=== PATIENT | female | born 1965 | race African-American/Black ===

== ENCOUNTER 2016-09-07 16:28 | Inpatient (IN) ==
--- NOTE | 2016-09-07 17:32 | EKG Report ---
Stationary ECG Study [facility] ER Test Date: 09/07/2016 5:30:21 PM Pat Name: [place] DIAZ Department: Room: Gender: F Emergency Medcl Emt: : 1965 Requested by: Vasile Milligan Order Number: [id number] Reading MD: REAGAN GUSTAFSON Intervals [place] Rate: 69 P: 42 AL: 176 QRS: -29 QRSD: 113 T: 8 QT: 348 QTc: 368 Interpretive Statements SINUS RHYTHM LEFT AXIS DEVIATION Electronically Signed On 09-08-16 16:59:03 CDT by REAGAN GUSTAFSON [email or web address]
[2016-09-07 17:38] LABS: Basophils # 0.1 10*3/uL (0.0-0.2); Basophils % 0.6 % (0.0-0.8); Eosinophils # 0.1 10*3/uL (0.0-0.87); Eosinophils % 1.1 % (0.00-10.9); Hematocrit 38.5 VOL% (35.7-47.0); Hemoglobin 12.7 GM/DL (12.0-16.0); Immature Granulocytes % 0.3 %; Immature Granulocytes Absolute 0.02 #; Lymphocytes # 2.6 10*3/uL (1.4-4.0); Lymphocytes % 32.4 % (21.3-54.2); Mean Corpuscular Hemoglobin 30 PG (27-34); Mean Platelet Volume 10.5 FL (9.6-12.0); Monocytes # 0.4 10*3/uL (0.11-0.8); Monocytes % 5.5 % (1.7-12.7); Neutrophils # 4.7 10*3/uL (1.4-7.4); Neutrophils % 60.1 % (38.7-73.9); Platelet Count 283 T/CUMM (130-400); Red Blood Count 4.23 MC/CUMM (3.8-5.5); Red Cell Distribution Width 14.6 % (9.3-17.3); White Blood Count 7.9 T/CUMM (4-12)
--- NOTE | 2016-09-07 17:38 | CT Report ---
CT head/brain wo con Indication: Left-sided hemiparesis. CT BRAIN WITHOUT CONTRAST DLP: 1012 mGy*cm. One or more of the following dose reduction techniques was used: Automated exposure control, adjustment of the mA and/or kV according the patient size, or use of iterative reconstruction techniques. Comparison: None. Date of admission: 09/07/2016. Technique: Axial noncontrast CT images of the brain were obtained. Findings: No acute hemorrhage, mass or mass effect. Loss of gonzales-white junction is present right frontal lobe. Remainder of cortical gonzales-white junction is maintained. Basilar structures are well-defined. Visualized sinuses are clear. No bone lesions. Impression: Acute or subacute right frontal infarct. Comment: Critical test results discussed Dr. Summers at 1735 hours. PROCEDURE INTERPRETED AT [facility] DEPARTMENT OF RADIOLOGY Final Report Signed by: Cristi Mohamud M.D.
--- NOTE | 2016-09-07 17:39 | XRay Report ---
XR chest 2V Indication: "Cardiomegaly" Chest 2 views: No comparison. Heart size is normal. Mediastinal contours unremarkable. Right hemidiaphragm is elevated, and lungs are hypoinflated. No infiltrates are shown. Mild atelectasis of lung bases is present. Obesity noted as well. Impression: Elevated right hemidiaphragm, pulmonary hypoinflation and atelectasis. PROCEDURE INTERPRETED AT [facility] DEPARTMENT OF RADIOLOGY Final Report Signed by: Cristi Mohamud M.D.
--- NOTE | 2016-09-07 17:44 | Emergency Department Note ---
Arrival - Arrival Chief Complaint: Neuro Stated Complaint: Neuro transfer ED Nursing Triage Note: Pt c/o left arm pain since 2200 from left elbow up into shoulder and neck, then today at aprox 1300 today she developed left sided facial numbness with a GUZMAN that goes and comes. Pt sent for Neuro consult. Pt denies CP or SOB. Mode of Arrival: Stretcher Limitations: No Limitations Source: Patient Time Seen by Provider: 09/07/16 17:35 - History of Present Illness HPI Narrative: The patient complains of migratory pain in the left arm which moves from the elbow to the shoulder to the left neck and jaw, off and on since last night. She recalls no injury or strain and has not had these symptoms in the past. Today she also developed numbness to the left side of the face around 1 o' clock. She states this is improved at this point and located only on the left cheek but states she is also having some eye twitching now. She also complains of intermittent left sided headache. She denies any weakness or visual changes. She has no history of stroke and no history of cardiac problems. She denies chest pain or shortness of breath. No fever or recent illness. Date of Last Menstrual Period: in Jun irregular Allergies/Adverse Reactions: Allergies Allergy/AdvReac Type Severity Reaction Status Date / Time No Known Allergies Allergy Verified 09/07/16 16:37 Home Medications: Home Medications Medication Instructions Recorded Confirmed Type Amlodipine Besylate 5 mg PO QAM 09/07/16 09/07/16 History Aspirin EC Tab 81 mg PO QAM 09/07/16 09/07/16 History hydroCHLOROthiazide 25 mg PO QAM 09/07/16 09/07/16 History [Hydrochlorothiazide] Review of System - Review of System 12 point system: reviewed and no additional remarkable complaints except as stated - Review of System Constitutional: Absent: diaphoresis, fever, weakness Head/Ears/Nose/Throat: Absent: nasal drainage, sore throat Respiratory: Absent: cough, respiratory distress Cardiovascular: Absent: chest pain, palpitations, dyspnea on exertion Gastrointestinal: Absent: abdominal pain, nausea, vomiting Musculoskeletal: Present: arm pain Neurological: Present: headache, numbness, paresthesias. Absent: weakness, confusion, abnormal gait, vertigo Medical,Surgical,& Family Hx - Medical History Cardio: History of: Hypertension - Surgical History Surgical History: noncontributory - Family History Family History: Reports;: Family Cancer, Family Diabetes, Family Hypertension, Family Stroke - Social History Smoking Status: Never smoker Exam Physical Examination: GENERAL: Alert. No acute distress. HEENT: Normocephalic and atraumatic. There is no temporal artery tenderness or pain on percussion of sinuses. No TMJ tenderness or click. PERRL, EOM intact, no angle closure. There is no nasal discharge. No pharyngeal erythema or exudate. NECK: Normal inspection. Supple. No lymphadenopathy or meningismus. LUNGS: No respiratory distress. Clear to auscultation bilaterally, no wheezes, rales or rhonchi. HEART: Regular rate and rhythm. SKIN: Color normal. Warm and dry. EXTREMITIES: Nontender. Normal range of motion. NEUROLOGICAL/PSYCHIATRIC: Alert and oriented 4. Normal speech. Normal mood and affect. Cranial nerves II through X are intact. Sensory and motor exams are normal. Reflexes are normal. There is no pronator drift. Finger to nose is normal bilaterally. Vital Signs: Vital Signs Temperature 98.5 F 09/07/16 16:55 Pulse Rate 65 09/07/16 18:38 Respiratory Rate 15 09/07/16 18:38 Blood Pressure 150/90 09/07/16 18:38 O2 Sat by Pulse Oximetry 100 09/07/16 18:38 Course - Reevaluation(s) Reevaluation #1: The patient has remained stable in the ER. CT of the head shows an acute versus subacute right frontal infarct. The patient would not be a candidate for TPA because of the mildness of her symptoms. Right now she is only having some paresthesia of the left cheek, intermittent headache, and intermittent arm pain. There is no weakness whatsoever. No speech difficulty or abnormality. No mental status change. I discussed this patient with the hospitalist service who will see her and admit. Time: 19:26 Results - Labs CBC & BMP: 09/07/16 17:30 09/07/16 17:18 Lab Results: I have reviewed the patients labs Labs: Laboratory Tests 09/07/16 09/07/16 09/07/16 17:18 17:18 17:18 INR 1.0 Total Bilirubin 0.40 AST 14 ALT 17 Troponin I < 0.015 Urine Leukocytes Negative Urine RBC <1 Urine WBC 1 - Impressions Chest x-ray shows an elevated right hemidiaphragm and atelectasis. CT of the head shows a right frontal subacute versus acute infarct. EKG shows a normal sinus rhythm at 69 with left ventricular hypertrophy. Disposition Clinical Impression: Cerebrovascular accident Case discussed with: patient Disposition: Still a Patient Condition: Stable Time of Disposition: 19:26
[2016-09-07 18:01] LABS: Alanine Aminotransferase 17 U/L (13-56); Albumin 3.4 G/DL (3.4-5.0); Alkaline Phosphatase 71 U/L (45-117); Aspartate Amino Transferase 14 U/L (0-37); Blood Urea Nitrogen 10 MG/DL (7-18); Calcium 9.1 MG/DL (8.5-10.1); Glucose 116 MG/DL (74-106); Osmolality,Calculated 278.4 MOS/KG (273-304); Potassium 3.6 MMOL/L (3.5-5.1); Sodium 140 MMOL/L (136-145); Total Protein 7.1 G/DL (6.4-8.3); Troponin I Only < 0.015 NG/ML (0.00-0.045)
[2016-09-07 18:55] LABS: Apearance,Urine CLEAR (Clear); Bacteria,Urine Occasional /HPF (Few); Bilirubin,Urine Negative (Negative); Blood, Urine Negative (Negative); Glucose,Urine (UA) Negative (Negative); Ketones,Urine Negative (Negative); Mucus,Urine Occasional /LPF (Occasional); Nitrite,Urine Negative (Negative); Protein,Urine Negative; RBC,Urine <1 /HPF (0-4); Squamous Epithelial Cell,Urine Occasional /HPF (0-10); Urine Color Straw (Yellow); Urine Specific Gravity 1.011 (1.001-1.035); Urine Urobilinogen < 2.0 EU/DL (0.2-1.0); WBC,Urine 1 /HPF (0-6)
[2016-09-07 19:04] LABS: Barbiturates Screen,Urine Negative (Negative); Benzodiazepines Screen,Urine Negative (Negative); Cannabinoid Screen,Urine Negative (Negative); Opiate Screen,Urine Negative (Negative); Phencyclidine Screen,Urine Negative (Negative)
--- NOTE | 2016-09-07 21:25 | Hospitalist History & Physical ---
Assessment and Plan (1) Hypertension Status: Acute Current Visit: Yes (2) Arm pain Status: Acute Current Visit: Yes (3) Cerebrovascular accident Status: Acute Assessment and plan: We will admit the patient our service. She will be placed on a monitored bed. Given her symptoms we do feel that a stroke is most likely based on her CT scan. It would be prudent to check cardiac enzymes while she is in the hospital. Patient might benefit from an outpatient workup or an inpatient workup because her EKG is abnormal. Will repeat EKG in the morning. We will do a stroke workup including MRI carotid ultrasound and 2D echo. Current Visit: Yes History of Present Illness Chief complaint: Facial numbness and arm pain History of present illness: Ms. Fernandez is a 51 year old female with past medical history significant for hypertension who was in normal state of health until last night. Patient reports that last night she started having arm pain. She said it was a dull ache it radiated up her elbow into her jaw. She is also complaining about facial numbness that started today. The facial numbness is on the left side which is the same side as the arm pain and she said it just feels different to touch. She denies all chest pain no shortness of breath no diaphoresis. Patient was seen in urgent care clinic but subsequently recommended that she come up to our hospital for further evaluation. Patient's CT of her brain showed an acute or subacute right frontal infarct. Based on the results of the CT scan and the patient's presentation we are admitting her to the hospital through the emergency room. Home Medications Medication Instructions Recorded Confirmed Type Amlodipine Besylate 5 mg PO QAM 09/07/16 09/07/16 History Aspirin EC Tab 81 mg PO QAM 09/07/16 09/07/16 History hydroCHLOROthiazide 25 mg PO QAM 09/07/16 09/07/16 History [Hydrochlorothiazide] Allergies Allergy/AdvReac Type Severity Reaction Status Date / Time No Known Allergies Allergy Verified 09/07/16 16:37 Medical,Surgical,& Family Hx - Medical History Cardio: History of: Hypertension - Surgical History HEENT Surgeries: Surgical HX of: Tonsilectomy & Adenoidectomy Reproductive Surgeries: Surgical HX of;: Tubal Ligation - Family History Family History: Reports;: Family Cancer, Family Diabetes, Family Hypertension, Family Stroke - Social History Smoking Status: Never smoker Frequency of Alcohol Use: Occasionally Type of Drug Use: None 12 point system: reviewed and no additional remarkable complaints except as stated Exam - Constitutional Vitals: Period Temp Pulse Resp BP Sys/Barlow Pulse Ox Last 24 Hr 98.5 F-98.5 F 65-78 12-22 129-155/76-108 98-100 General appearance: over weight - Head Head exam: Present: normal inspection - Eye Eye exam: Present: EOMI Pupils: Present: TRAE - ENT ENT exam: Present: normal exam - Neck Neck exam: Present: normal inspection - Respiratory Respiratory exam: Present: clear to auscultation bilaterally - Cardiovascular Cardiovascular exam: Present: regular rate and rhythm - GI/Abdominal GI/Abdominal exam: Present: normal bowel sounds - Extremities Exam Extremities exam: Present: normal inspection - Back Exam Back exam: Present: normal inspection - Neurological Exam Neurological exam: Present: alert, other (Patient has equal cytology manager strength has no speech slur but has a subjective feeling of numbness on the left side of her face compared to the right) - Psychiatric Psychiatric exam: Present: normal affect - Skin Skin exam: Present: normal color Results - Labs CBC & BMP: 09/07/16 17:30 09/07/16 17:18 Quality Measures - Stroke Onset of Symptoms Date: 09/07/16 Onset of Symptoms Time: 22:00
[2016-09-07] MEDS ORDERED: LABETALOL 20 MG/4 ML SYRINGE IV PRN (21:27)
[2016-09-07] MEDS: ENOXAPARIN 40 MG/0.4 ML SYRINGE SUBCUT SCH (22:54)
[2016-09-08 06:48] LABS: Troponin I Only < 0.015 NG/ML (0.00-0.045)
[2016-09-08 06:57] LABS: Risk Ratio 3.38; VLDL CHOLESTEROL 27.8 MG/DL
[2016-09-08] MEDS: ASPIRIN 325 MG TABLET PO SCH (08:40)
[2016-09-08] MEDS: amLODIPine 5 MG TABLET PO SCH (08:40)
[2016-09-08] MEDS: hydroCHLOROthiazide 25 MG TABLET PO SCH (08:40)
--- NOTE | 2016-09-08 09:28 | Ultrasound Report ---
Exam: Carotid ultrasound Date: 09/08/2016 Comparison: None Technique: Duplex scans of the carotid and vertebral arteries using B-mode/Lea scale imaging and Doppler spectral analysis and color flow. Reason: CVA Findings: The right ICA measures 5.5 mm in diameter and the left ICA measures 4.5 mm in diameter. Color-flow documented in the visualized arteries. The peak systolic velocities are as follows: Right CCA: 80.7 cm/s Right ICA: 120.0 cm/s Right ECA: 90 5. cm/s Left CCA: 102.2 cm/s Left ICA: 104.0 cm/s Left ECA: 49.3 cm/s The peak systolic ICA/CCA velocity ratios are as follows: 1.5 on the right and 1.0 on the left. Antegrade flow is present in both vertebral arteries. Impression:[Less than 50% stenosis in both internal carotid arteries with no significant plaque formation. Antegrade flow in both vertebral arteries.] The Society of Radiologists in Ultrasound consensus conference criteria was used. The Ultrasound images were captured and stored. PROCEDURE INTERPRETED AT [facility] DEPARTMENT OF RADIOLOGY Final Report Signed by: Dr. Nolvia Wilkinson
--- NOTE | 2016-09-08 09:37 | Neurology Consult Note ---
History of Present Illness History of present illness: Ms. Fernandez is a 51 year old female with past medical history significant for hypertension who was in normal state of health until last night. Patient reports that last night she started having left arm pain. She said it was a dull ache it radiated up her elbow into her jaw. She is also complaining about left facial numbness that started yesterday. She denies all chest pain no shortness of breath no diaphoresis. Patient was seen in urgent care clinic but subsequently recommended that she come up to our hospital for further evaluation. Patient's CT of her brain read as an acute or subacute right frontal infarct. However exam does not correlate with the CT scan findings. Carotid ultrasound is unremarkable. Lipid panel is okay Home Medications Medication Instructions Recorded Confirmed Type Amlodipine Besylate 5 mg PO QAM 09/07/16 09/07/16 History Aspirin EC Tab 81 mg PO QAM 09/07/16 09/07/16 History hydroCHLOROthiazide 25 mg PO QAM 09/07/16 09/07/16 History [Hydrochlorothiazide] Allergies Allergy/AdvReac Type Severity Reaction Status Date / Time No Known Allergies Allergy Verified 09/07/16 16:37 12 point system: reviewed and no additional remarkable complaints except as stated Medical,Surgical,& Family Hx - Medical History Cardio: History of: Hypertension - Surgical History HEENT Surgeries: Surgical HX of: Tonsilectomy & Adenoidectomy Reproductive Surgeries: Surgical HX of;: Tubal Ligation - Family History Family History: Reports;: Family Cancer, Family Diabetes, Family Hypertension, Family Stroke - Social History Smoking Status: Never smoker Frequency of Alcohol Use: Occasionally Type of Drug Use: None Exam - Constitutional Vitals: Period Temp Pulse Resp BP Sys/Barlow Pulse Ox Last 24 Hr 97.9 F-97.9 F 81-81 16-18 125-125/71-71 95-95 Exam: GENERAL: Patient is in no acute distress. NECK: Neck is supple. There is no JVD. No carotid bruits present. No thyroid masses. CVS: First and second heart sounds are normal. There is no S3 present. Regular rate and rhythm. RESPIRATORY: Lungs are clear to auscultation without any rales or rhonchi. ABDOMEN: Soft and non-tender. Bowel sounds are present. There is no hepatosplenomegaly. EXT: There is no palpable edema. Peripheral pulses are present. Skin: No rashes Central Nervous system: General: Alert, awake and Oriented x 3 Speech: Fluent Comprehension: Intact and normal Facial expressions: Normal Cranial Nerves: CN1/Olfactory: Normal CN II/ Optic: Normal, Visual Presley unreliable CN III, and : TRAE & EOMI CN V: Normal & intact CN VII: face is symmetric CNVIII: Normal CN XI/X/XI/XII: Intact and Normal Motor: Bulk and Tone is normal. Strength in the right 5/5 Strength in the left 5/5 Sensory: Grossly intact for all the modalities of PP, LT and temp sense Reflexes: 1+ and symmetrical Cerebellar function: Normal finger to nose and heel to madera testing. Toes: Equivocal Gait: Normal heel to heel and toe to toe and tandem walk. Results - Labs CBC & BMP: 09/07/16 17:30 09/07/16 17:18 Assessment and Plan (1) Left arm pain Status: Acute Assessment and plan: Neuro exam is nonfocal. No evidence of stroke on examination however CT scan is read as subacute to acute infarct. Continue aspirin a day. We will perform MRI of the brain Discussed at length with the patient. Thank you for the consult Current Visit: Yes
--- NOTE | 2016-09-08 14:01 | Magnetic Resonance Report ---
Exam: MR head/brain wo con Date: 09/08/2016 4:00 AM Comparison: CT brain 09/07/2016 Indication: CVA, pain and numbness on left side with abnormal CT Technique:[Multiple acquisitions were obtained including sagittal T1, coronal T2, and axial ADC, diffusion, FLAIR, T2, GRE, and T1 scans without contrast only. Scans were obtained on a 1.5 Latrice magnet.] Findings: The ventricles remain normal in size with no midline displacement. The pituitary has a normal appearance and the cerebellar tonsils are normal in their location. No acute infarction is identified in the diffusion scans. No evidence of hemorrhage, mass, or extracerebral collection. Enlarged perivascular spaces are noted which represent a normal variant. No acute findings in the paranasal sinuses, orbits, temporal bones, or [place] of [place]. Impression: No acute intracranial pathology identified. No definite acute infarction noted in the right frontal lobe. PROCEDURE INTERPRETED AT [facility] DEPARTMENT OF RADIOLOGY Final Report Signed by: Dr. Nolvia Wilkinson
--- NOTE | 2016-09-08 15:21 | ECHO Report ---
Lily Fernandez Exam Date: 09/08/2016 11:09 Referring Physician: Technologist: Age: 51 Ht (in): 64 Wt (lb): 286 Gender: F Exam Location: [facility] Echo Indications: CVA, Essential (primary) hypertension, Arm pain, Facial numbness BP: 125 / 71 HR: 76 Rhythm: Sinus Technical Quality: Good IMPRESSIONS Left ventricular ejection fraction is estimated at 60 %. The right ventricle is normal in size and function. The right atrium is mildly enlarged. The left atrium is mildly enlarged. Morphologically normal mitral valve. No mitral valve regurgitation. The aortic valve is trileaflet and has normal motion. No aortic valve regurgitation. Mild tricuspid valve regurgitation. [id number]. Trace pulmonary valve regurgitation. Normal pericardium without effusion. Normal ascending aorta dimension. No LA or LV clot seen. MEASUREMENTS (Male / Female) Normal Values 2D ECHO LV Diastolic Diameter PLAX 4.4 cm 4.2 - 5.9 / 3.9 - 5.3 cm IVS Diastolic Thickness 1.0 cm 0.6 - 1.0 / 0.6 - 0.9 cm LVPW Diastolic Thickness 1.0 cm 0.6 - 1.0 / 0.6 - 0.9 cm RV Internal Dim ED PLAX 3.3 cm Aortic Root Diameter 3.5 cm LA Systolic Diameter LX 4.2 cm 3.0 - 4.0 / 2.7 - 3.8 cm DOPPLER TR Peak Velocity 240.0 cm/s TR Peak Gradient 23.0 mmHg FINDINGS Left Ventricle Normal left ventricular cavity size. Normal left ventricular wall thickness. Left ventricular ejection fraction is estimated at 60 %. Right Ventricle The right ventricle is normal in size and function. Right Atrium The right atrium is mildly enlarged. Left Atrium The left atrium is mildly enlarged. Mitral Valve Morphologically normal mitral valve. No mitral valve regurgitation. Aortic Valve The aortic valve is trileaflet and has normal motion. No aortic valve regurgitation. Tricuspid Valve Morphologically normal tricuspid valve. Mild tricuspid valve regurgitation. [id number]. Pulmonic Valve Morphologically normal pulmonic valve. Trace pulmonary valve regurgitation. Pericardium Normal pericardium without effusion. Aorta Normal ascending aorta dimension. Cayetano Healy (Electronically Signed) Final Date: 08 September 2016 15:20
--- NOTE | 2016-09-08 18:45 | Hospitalist Progress Note ---
Assessment and Plan (1) Hypertension Status: Acute Assessment and plan: BP only slighlty elevated upon admission. Patient is asymptomatic of presenting symptoms. It is unclear at this point what the underlying etiology may be. MRI brain is unremarkable and clincial exam is currently wnl. Neurology did see the patient but has not yet seen the normal MRI. I have discussed with the patient the need for continued strict BP control and daily ASA. Likely d/c home on tomorrow. Current Visit: Yes (2) Arm pain Status: Acute Current Visit: Yes (3) Left arm pain Status: Acute Current Visit: Yes Hospitalist: Subjective Interval history: Patient seen and examined and the plan of care and findings have been discussed. CT Head showed and are of possibly acute vs subacute infarct. Clinical exam does not correlate with such. Neuro did evaluate the patient and wanted to see what the MRI would reveal. MRI findings are negative for any acute intracranial pathology. Unclear as to the etiology of this episode. Will continue with BP control and daily ASA. Likely d/c home on tomorrow. Exam - Constitutional Vitals: Period Temp Pulse Resp BP Sys/Barlow Pulse Ox Last 24 Hr 97.6 F-97.9 F 64-81 16-18 123-129/71-79 95-99 General appearance: over weight - Head Head exam: Present: normal inspection, normocephalic, atraumatic - Eye Eye exam: Present: EOMI - ENT ENT exam: Present: normal exam - Neck Neck exam: Present: normal inspection - Respiratory Respiratory exam: Present: clear to auscultation bilaterally. Absent: rales, rhonchi, wheezes - Cardiovascular Cardiovascular exam: Present: regular rate and rhythm. Absent: gallop, rubs - GI/Abdominal GI/Abdominal exam: Present: normal bowel sounds, soft. Absent: distended - Extremities Exam Extremities exam: Present: normal inspection - Neurological Exam Neurological exam: Present: alert, oriented X3, CN II-XII intact - Psychiatric Psychiatric exam: Present: normal affect, normal mood - Skin Skin exam: Present: normal color, warm, dry Results - Labs CBC & BMP: 09/07/16 17:30 09/07/16 17:18 - Diagnostic Findings Procedure: MRI: report reviewed by me Quality Measures - Stroke Onset of Symptoms Date: 09/07/16 Onset of Symptoms Time: 22:00
[2016-09-08] MEDS: ENOXAPARIN 40 MG/0.4 ML SYRINGE SUBCUT SCH (21:06)
[2016-09-09] MEDS: ASPIRIN 325 MG TABLET PO SCH (08:14)
[2016-09-09] MEDS: amLODIPine 5 MG TABLET PO SCH (08:15)
[2016-09-09] MEDS: hydroCHLOROthiazide 25 MG TABLET PO SCH (08:15)
--- NOTE | 2016-09-09 08:38 | Hospitalist Progress Note ---
Assessment and Plan (1) Arm pain Status: Acute Current Visit: Yes Qualifiers: Laterality: left Qualified Code(s): M79.602 - Pain in left arm (2) Hypertension Status: Chronic Current Visit: Yes Hospitalist: Subjective Interval history: 51 yo female with acute presentation with left arm pain and subsequent involvement of the left lower face predominately as paresthesia. Initial CT scan felt to show abnormality however findings are not replicated on MRI. Rhythm sinus with negative carotid Doppler and echocardiogram. No recurrent symptoms. She was noted to be hypertensive at admission with history of hypertension with use of amlodipine and hydrochlorthiazide on home medication list. Her blood pressure has been excellent since admission on home regimen. Exam - Constitutional Vitals: Period Temp Pulse Resp BP Sys/Barlow Pulse Ox Last 24 Hr 9.2 F-98.6 F 66-80 16-19 117-129/69-80 96-99 General appearance: over weight - Respiratory Respiratory exam: Present: clear to auscultation bilaterally. Absent: rales, rhonchi, wheezes - Cardiovascular Cardiovascular exam: Present: regular rate and rhythm - Neurological Exam Neurological exam: Present: alert, oriented X3 Results - Labs CBC & BMP: 09/07/16 17:30 09/07/16 17:18 Quality Measures - Stroke Onset of Symptoms Date: 09/07/16 Onset of Symptoms Time: 22:00
--- NOTE | 2016-09-09 14:22 | Neurology Progress Note ---
Neurology - PN : Subjective Interval history: Patient seems to be doing really well. No new problems reported. Neuro exam is nonfocal. MRI of the brain is unremarkable for any acute pathology. Exam (Progress Note) - Constitutional Vitals: Period Temp Pulse Resp BP Sys/Barlow Pulse Ox Last 24 Hr 9.2 F-98.6 F 66-80 16-19 117-129/69-80 96-99 Exam: GENERAL: Patient is in no acute distress. NECK: Neck is supple. There is no JVD. No carotid bruits present. No thyroid masses. CVS: First and second heart sounds are normal. There is no S3 present. Regular rate and rhythm. RESPIRATORY: Lungs are clear to auscultation without any rales or rhonchi. ABDOMEN: Soft and non-tender. Bowel sounds are present. There is no hepatosplenomegaly. EXT: There is no palpable edema. Peripheral pulses are present. Skin: No rashes Central Nervous system: General: Alert, awake and Oriented x 3 Speech: Fluent Comprehension: Intact and normal Facial expressions: Normal Cranial Nerves: CN1/Olfactory: Normal CN II/ Optic: Normal, Visual Presley unreliable CN III, and : TRAE & EOMI CN V: Normal & intact CN VII: face is symmetric CNVIII: Normal CN XI/X/XI/XII: Intact and Normal Motor: Bulk and Tone is normal. Strength in the right 5/5 Strength in the left 5/5 Sensory: Grossly intact for all the modalities of PP, LT and temp sense Reflexes: 1+ and symmetrical Cerebellar function: Normal finger to nose and heel to madera testing. Toes: Equivocal Gait: Normal heel to heel and toe to toe and tandem walk. Results - Labs CBC & BMP: 09/07/16 17:30 09/07/16 17:18 Assessment and Plan (1) Left arm pain Status: Acute Assessment and plan: Continue aspirin a day Okay to go home from neuro stand Sign off please call as needed Current Visit: Yes Quality Measures - Stroke Onset of Symptoms Date: 09/07/16 Onset of Symptoms Time: 22:00
--- NOTE | 2016-09-09 14:42 | Discharge Summary ---
Hospital Course - Hospital Course Hospital Course: 51 yo female hypertenive with acute onset of left arm and lower facial paresthesia/pain. Full neurologic evaluation unremarkable. Though initial ER CT of the head was read as abnormal, MRI showed no abnormalities. She is discharged at this time to continue her antihypertensive therapy and follow-up. Diagnosis - Discharge Diagnosis (1) Arm pain Status: Acute (2) Hypertension Status: Chronic Discharge Plan - Discharge Data Disposition: Disch To Home/Self Care Condition at Discharge: Stable Discharge Diet: advance to your usual diet - Discharge Medications Continue Aspirin EC Tab 81 mg PO QAM Amlodipine Besylate 5 mg PO QAM hydroCHLOROthiazide [Hydrochlorothiazide] 25 mg PO QAM - Follow Up or Referral - Forms/Instructions Exam - Constitutional Vitals: Period Temp Pulse Resp BP Sys/Barlow Pulse Ox Last 24 Hr 9.2 F-98.6 F 66-80 16-19 117-129/69-80 96-99 DS: Provider Date of admission: 09/07/16 20:42 Primary care physician: . No PCP Attending physician on admission: Luci Jewell MD Consults: 09/07/16 21:28 Consult to Case Mgmt/Social Srvs [CONS] Routine Reason for Case Mgmt/Social Srvs: Discharge Planning Consult to Occupational Therapy [CONS] Routine Reason for Occupational Therapy: Evaluate and Treat Consult Comment: Stroke Consult to Physical Therapy [CONS] Routine Reason for Physical Therapy: Evaluate and Treat Consult Comment: stroke 09/07/16 21:29 Consult to Physician [CONS] Routine Comment: cva Consulting Provider: Tavon Claudio Consult to Specialist Group: Neurology Person Notified: freedom Date Notified: 09/08/16 Time Notified: 09:03 Discharging clinician: Luis Prasad MD Expected date of discharge: 09/09/16
[2016-09-09 14:45] VITALS: BP 117/72
== END 2016-09-09 19:48 | disposition home or self-care (01) | DRG 556 ==
LOC: EDBD → EDUNIT# → N.ED 16:28 → N.EDINP 20:42 → SUATTDRO 20:42 → N.5E 21:52
PROVIDERS: ADMIT Internal Medicine; ATTEND Internal Medicine Cardiovascular Disease